=== PATIENT | female | born 1995 | race Caucasian/White ===

== ENCOUNTER 2016-09-20 16:28 | Emergency (ER) | payer OTHER | END 2016-09-20 19:48 | disposition left against medical advice (07) | LOC: ER1 16:28 | DX: Z53.21 Procedure and treatment not carried out due to patient leaving prior to being seen by health care provider (principal) ==

== ENCOUNTER 2016-10-20 19:50 | Emergency (ER) | payer OTHER | END 2016-10-20 22:10 | disposition home or self-care (01) | LOC: ER1 19:50 | DX: M54.5 Low back pain (principal); F17.210 Nicotine dependence, cigarettes, uncomplicated | CPT/HCPCS: 72100; 99283 ==